=== PATIENT | male | born 1985 | race Caucasian/White ===

== ENCOUNTER 2016-12-31 16:58 | Emergency (ER) | payer MEDICAID | END 2016-12-31 19:30 | disposition left against medical advice (07) | LOC: D.ER 16:58 | DX: K08.89 Other specified disorders of teeth and supporting structures (principal) ==

== ENCOUNTER 2017-08-14 15:27 | Emergency (ER) | payer MEDICAID | END 2017-08-14 16:46 | disposition home or self-care (01) | LOC: D.ER 15:27 | DX: K04.7 Periapical abscess without sinus (principal); K08.89 Other specified disorders of teeth and supporting structures; F17.200 Nicotine dependence, unspecified, uncomplicated ==

== ENCOUNTER 2017-08-31 14:53 | Emergency (ER) | payer MEDICAID | END 2017-08-31 16:44 | disposition home or self-care (01) | LOC: D.ER 14:53 | DX: K04.7 Periapical abscess without sinus (principal); K08.89 Other specified disorders of teeth and supporting structures; K02.9 Dental caries, unspecified; F17.200 Nicotine dependence, unspecified, uncomplicated ==

== ENCOUNTER 2017-09-12 13:19 | Emergency (ER) | payer MEDICAID | END 2017-09-12 14:45 | disposition home or self-care (01) | LOC: D.ER 13:19 | DX: K04.7 Periapical abscess without sinus (principal); K02.9 Dental caries, unspecified; K08.89 Other specified disorders of teeth and supporting structures ==

== ENCOUNTER 2017-09-25 10:46 | Emergency (ER) | payer BC | END 2017-09-25 13:13 | disposition home or self-care (01) | LOC: D.ER 10:46 | DX: K02.9 Dental caries, unspecified (principal); K08.89 Other specified disorders of teeth and supporting structures ==

== ENCOUNTER 2017-10-16 08:22 | Emergency (ER) | payer MEDICAID | END 2017-10-16 10:45 | disposition home or self-care (01) | LOC: D.ER 08:22 | DX: K02.9 Dental caries, unspecified (principal); K08.89 Other specified disorders of teeth and supporting structures ==

== ENCOUNTER 2017-11-10 08:20 | Emergency (ER) | payer MEDICAID | END 2017-11-10 09:14 | disposition home or self-care (01) | LOC: D.ER 08:20 | DX: K02.9 Dental caries, unspecified (principal); F17.200 Nicotine dependence, unspecified, uncomplicated ==

== ENCOUNTER 2017-11-19 14:17 | Emergency (ER) | payer MEDICAID | END 2017-11-19 17:03 | disposition home or self-care (01) | LOC: D.ER 14:17 | DX: L25.9 Unspecified contact dermatitis, unspecified cause (principal); K04.7 Periapical abscess without sinus; K08.89 Other specified disorders of teeth and supporting structures; F17.200 Nicotine dependence, unspecified, uncomplicated ==

== ENCOUNTER 2017-12-18 10:42 | Emergency (ER) | payer MEDICAID | END 2017-12-18 12:28 | disposition home or self-care (01) | LOC: D.ER 10:42 | DX: K04.7 Periapical abscess without sinus (principal); K02.9 Dental caries, unspecified; L25.9 Unspecified contact dermatitis, unspecified cause; F17.200 Nicotine dependence, unspecified, uncomplicated ==

== ENCOUNTER 2018-01-01 14:02 | Emergency (ER) | payer MEDICAID | END 2018-01-01 18:22 | disposition home or self-care (01) | LOC: D.ER 14:02 | DX: K02.9 Dental caries, unspecified (principal); L85.3 Xerosis cutis ==

== ENCOUNTER 2018-01-21 08:48 | Emergency (ER) | payer MEDICAID | END 2018-01-21 11:48 | disposition home or self-care (01) | LOC: D.ER 08:48 | DX: F12.10 Cannabis abuse, uncomplicated (principal); F41.9 Anxiety disorder, unspecified; F17.200 Nicotine dependence, unspecified, uncomplicated ==

== ENCOUNTER 2018-02-16 08:21 | Emergency (ER) | payer MEDICAID | END 2018-02-16 09:00 | disposition home or self-care (01) | LOC: D.ER 08:21 | DX: K08.89 Other specified disorders of teeth and supporting structures (principal); K02.9 Dental caries, unspecified; F17.200 Nicotine dependence, unspecified, uncomplicated ==

== ENCOUNTER 2018-03-15 08:18 | Emergency (ER) | payer SELFPAY | END 2018-03-15 09:17 | disposition home or self-care (01) | LOC: D.ER 08:18 | DX: K02.9 Dental caries, unspecified (principal); K05.10 Chronic gingivitis, plaque induced; K08.89 Other specified disorders of teeth and supporting structures; F17.200 Nicotine dependence, unspecified, uncomplicated ==

== ENCOUNTER 2018-04-04 18:31 | Emergency (ER) | payer MEDICAID | END 2018-04-04 20:14 | disposition left against medical advice (07) | LOC: D.ER 18:31 | DX: K08.89 Other specified disorders of teeth and supporting structures (principal) ==

== ENCOUNTER 2018-04-06 09:00 | Emergency (ER) | payer MEDICAID | END 2018-04-06 09:43 | disposition home or self-care (01) | LOC: D.ER 09:00 | DX: R07.89 Other chest pain (principal); K08.89 Other specified disorders of teeth and supporting structures; W01.0XXA Fall on same level from slipping, tripping and stumbling without subsequent striking against object, initial encounter; Y93.89 Activity, other specified; Y92.017 Garden or yard in single-family (private) house as the place of occurrence of the external cause; F17.200 Nicotine dependence, unspecified, uncomplicated ==

== ENCOUNTER 2018-04-19 06:50 | Emergency (ER) | payer MEDICAID | END 2018-04-19 07:40 | disposition home or self-care (01) | LOC: D.ER 06:50 | DX: K02.9 Dental caries, unspecified (principal); K08.89 Other specified disorders of teeth and supporting structures ==

== ENCOUNTER 2018-05-14 00:14 | Emergency (ER) | payer MEDICAID ==
[~2018-05-14] VITALS: Ht 170.2 cm; Wt 68.2 kg
[2018-05-14 00:17] VITALS: Ht 170.2 cm; Wt 68.2 kg
[2018-05-14] MEDS ORDERED: VOLTAREN75 MG PO (11:48)
[2018-05-14] MEDS ORDERED: BIAXIN 500 MG500 MG PO (11:48)
== END 2018-05-14 01:50 | disposition left against medical advice (07) ==
LOC: D.ER 00:14
DX: K04.7 Periapical abscess without sinus (principal); K08.89 Other specified disorders of teeth and supporting structures

== ENCOUNTER 2018-05-14 11:06 | Emergency (ER) | payer MEDICAID ==
[~2018-05-14] VITALS: Ht 170.2 cm; Wt 72.7 kg
[2018-05-14 11:21] VITALS: BP 092/057; Ht 170.2 cm; Wt 72.7 kg
[2018-05-14] MEDS ORDERED: VOLTAREN75 MG PO (11:48)
[2018-05-14] MEDS ORDERED: BIAXIN 500 MG500 MG PO (11:48)
== END 2018-05-14 11:55 | disposition home or self-care (01) ==
LOC: D.ER 11:06
DX: K04.7 Periapical abscess without sinus (principal); K08.89 Other specified disorders of teeth and supporting structures

== ENCOUNTER 2018-06-10 19:11 | Emergency (ER) | payer MEDICAID ==
[~2018-06-10] VITALS: Ht 170.2 cm; Wt 68.0 kg
[~2018-06-10 19:11] MED LIST: BIAXIN 500 MG500 MG PO; VOLTAREN75 MG PO
[2018-06-10 19:15] VITALS: Ht 170.2 cm; Wt 68.0 kg
[2018-06-10] MEDS ORDERED: CYCLOBENZAPRINE10 MG PO (21:48)
[2018-06-10] MEDS ORDERED: AUGMENTIN 875-11 TAB PO (21:48)
[2018-06-10] MEDS ORDERED: ACETAMINOPHEN500 M1 PO (21:48)
[2018-06-10] MEDS ORDERED: IBUPROFEN800 MG PO (21:48)
[2018-06-11 01:12] VITALS: BP 121/77
== END 2018-06-11 01:13 | disposition home or self-care (01) ==
LOC: D.ER 19:11
DX: S91.342A Puncture wound with foreign body, left foot, initial encounter (principal); W45.0XXA Nail entering through skin, initial encounter; Y93.89 Activity, other specified; Y92.019 Unspecified place in single-family (private) house as the place of occurrence of the external cause; F17.200 Nicotine dependence, unspecified, uncomplicated

== ENCOUNTER 2018-10-04 01:41 | Emergency (ER) | payer SELFPAY ==
[~2018-10-04] VITALS: Ht 170.2 cm; Wt 68.2 kg
[~2018-10-04 01:41] MED LIST changes: +ACETAMINOPHEN500 M1 PO; +AUGMENTIN 875-11 TAB PO; +CYCLOBENZAPRINE10 MG PO; +IBUPROFEN800 MG PO
[2018-10-04 01:48] VITALS: Ht 170.2 cm; Wt 68.2 kg
[2018-10-04] MEDS ORDERED: CORTISPORIN OTI10 M1 RIGHT EAR (02:02)
[2018-10-04] MEDS ORDERED: AMOXICILLIN500 M1 PO (02:02)
[2018-10-04 02:21] VITALS: BP 130/77
== END 2018-10-04 02:29 | disposition home or self-care (01) ==
LOC: D.ER 01:41
DX: H60.11 Cellulitis of right external ear (principal); S09.91XA Unspecified injury of ear, initial encounter; X58.XXXA Exposure to other specified factors, initial encounter; Y93.89 Activity, other specified; Y92.019 Unspecified place in single-family (private) house as the place of occurrence of the external cause; K02.9 Dental caries, unspecified; F17.200 Nicotine dependence, unspecified, uncomplicated

== ENCOUNTER 2019-07-04 10:32 | Emergency (ER) | payer SELFPAY ==
[~2019-07-04] VITALS: Ht 170.2 cm; Wt 70.5 kg
[~2019-07-04 10:32] MED LIST changes: +AMOXICILLIN500 M1 PO; +CORTISPORIN OTI10 M1 RIGHT EAR
[2019-07-04 11:08] VITALS: BP 116/59; Ht 170.2 cm; Wt 70.5 kg
[2019-08-17 02:49] VITALS: Ht 170.2 cm; Wt 70.5 kg
== END 2019-07-04 11:50 | disposition left against medical advice (07) ==
LOC: D.ER 10:32
DX: R25.2 Cramp and spasm (principal)

== ENCOUNTER 2019-07-21 18:21 | Emergency (ER) | payer SELFPAY ==
[~2019-07-21] VITALS: Ht 170.2 cm; Wt 72.6 kg
[2019-07-21 18:44] VITALS: Ht 170.2 cm; Wt 72.6 kg
[2019-07-21 19:52] LABS: APPEARANCE SL CLDY (CLEAR); COLOR YELLOW (YELLOW); GLUCOSE NEGATIVE (NEGATIVE); KETONE NEGATIVE (NEGATIVE); NITRITE NEGATIVE (NEGATIVE); PROTEIN 1+ mg/dL (NEGATIVE); UROBILINOGEN NORMAL (NORMAL)
[2019-07-21 19:53] LABS: BILIRUBIN NEGATIVE (NEGATIVE)
[2019-07-21 19:54] LABS: RED CELLS - URINE >50 /hpf (0-5); WHITE CELLS - URINE 0-5 /hpf (0-5)
[2019-07-21 19:55] LABS: BACTERIA FEW /hpf (NONE SEEN); EPITHELIAL CELLS 0-5 /hpf (0-5)
[2019-07-21] MEDS ORDERED: LEVOFLOXACIN500 MG PO (21:23)
[2019-07-21] MEDS ORDERED: TORADOL10 MG PO (21:23)
[2019-07-21 21:41] VITALS: BP 118/68
[2019-07-28 13:10] LABS: CHLAMYDIA TRACHOMATIS, NAA Positive (Negative)
[2019-08-17 02:49] VITALS: Ht 170.2 cm; Wt 72.6 kg
== END 2019-07-21 21:42 | disposition home or self-care (01) ==
LOC: D.ER 18:21
PROVIDERS: Family Medicine
DX: N50.82 Scrotal pain (principal); N45.1 Epididymitis

== ENCOUNTER 2019-07-25 13:49 | Emergency (ER) | payer SELFPAY ==
[~2019-07-25] VITALS: Ht 170.2 cm; Wt 68.2 kg
[~2019-07-25 13:49] MED LIST changes: +LEVOFLOXACIN500 MG PO; +TORADOL10 MG PO
[2019-07-25 14:07] VITALS: Ht 170.2 cm; Wt 68.2 kg
[2019-07-25] MEDS ORDERED: ERYTHROMYCIN OPT1 GM EACH EYE (15:40)
[2019-07-25 16:05] VITALS: BP 120/68
[2019-08-17 02:49] VITALS: Ht 170.2 cm; Wt 68.2 kg
== END 2019-07-25 16:05 | disposition home or self-care (01) ==
LOC: D.ER 13:49
DX: S05.02XA Injury of conjunctiva and corneal abrasion without foreign body, left eye, initial encounter (principal); S05.01XA Injury of conjunctiva and corneal abrasion without foreign body, right eye, initial encounter; X58.XXXA Exposure to other specified factors, initial encounter; Y93.89 Activity, other specified; Y92.019 Unspecified place in single-family (private) house as the place of occurrence of the external cause

== ENCOUNTER 2019-08-16 15:09 | Inpatient (IN) | payer MEDICAID ==
[~2019-08-16] VITALS: Ht 180.3 cm; Wt 68.2 kg
[~2019-08-16 15:09] MED LIST changes: +ERYTHROMYCIN OPT1 GM EACH EYE
[2019-08-16 16:15] LABS: APPEARANCE CLEAR (CLEAR); BILIRUBIN NEGATIVE (NEGATIVE); COLOR YELLOW (YELLOW); GLUCOSE NEGATIVE (NEGATIVE); KETONE NEGATIVE (NEGATIVE); NITRITE NEGATIVE (NEGATIVE); PROTEIN NEGATIVE (NEGATIVE); UROBILINOGEN NORMAL (NORMAL)
[2019-08-16 16:16] LABS: BACTERIA FEW /hpf (NEGATIVE); RED CELLS - URINE 0-5 /hpf (0-5); SPERMATOZOA 0-5 /hpf (NONE SEEN); WHITE CELLS - URINE 25-50 /hpf (NEGATIVE)
[2019-08-16 16:21] LABS: BASOPHILS 0.1 % (0-2); EOSINOPHILS 0.2 % (0-7); HEMATOCRIT 41.4 % (42.0-54.0); HEMOGLOBIN 14.3 g/dL (13.5-17.5); IMMATURE GRANULOCYTES 0.2 % (0-5); LYMPHOCYTES 8.3 % (15-50); MCH 30.2 pg (26.0-34.0); MCHC 34.5 g/dL (31.0-37.0); MCV 87.3 fL (80.0-100.0); MEAN PLATELET VOLUME 10.5 fL (7.4-10.4); NEUTROPHILS 84.2 % (40-80); PLATELET COUNT 163 10x3/uL (130-400); RBC 4.74 10x6/uL (4.20-6.10); RDW 13.2 % (11.5-14.5); WBC 9.1 10x3/uL (4.8-10.8)
[2019-08-16 16:44] LABS: ALKALINE PHOSPHATASE 68 U/L (46-116); ALT (SGPT) 25 U/L (10-68); BILIRUBIN - TOTAL 0.47 mg/dL (0.2-1.3); CALC OSMOLALITY 264 mosm/kg (275-300); CALCIUM 7.6 mg/dL (8.5-10.1); CARBON DIOXIDE 28.1 mmol/L (21.0-32.0); CHLORIDE - SERUM 100 mmol/L (98-107); CREATININE - SERUM 0.9 mg/dL (0.6-1.3); GLUCOSE 99 mg/dL (74-106); PROTEIN - SERUM 6.5 g/dL (6.4-8.2); SODIUM 133 mmol/L (136-145); UREA NITROGEN 11 mg/dL (7-18); eGFR NON AFRICAN AMERICAN > 90 mL/min (90-120)
--- NOTE | 2019-08-16 22:31 | NUR ---
DC'D AZITHROMYCIN WHEN COMPLETED TRANSFUSION
--- NOTE | 2019-08-16 23:15 | NUR ---
RECEIVED PT FROM ER VIA W/C. SPEECH IS SLURRED. PT LETHARGIC AND DROWSY. DIFF STAYING AWAKE DURING ADMISSION ASSESSMENT QUESTION. B/P LOW AND REPORTED TO ANDREA HEREDIA. NS INFUSING IN RT AC WITHOUT DIFF. ORIENTED TO SELF, PLACE, SITUATION. CONFUSED. CL IN REACH. DENIES PAIN.
[2019-08-17] VITALS (7 sets, daily range): BP systolic 96–124; BP diastolic 39–65; Ht 180.3 cm; Wt 68.2 kg
--- NOTE | 2019-08-17 02:16 | NUR ---
CALLED BAIT PAINTER. NO TELEMETRY AVAILABLE AT THIS TIME.
--- NOTE | 2019-08-17 04:16 | NUR ---
HAS SLEPT SINCE ARRIVING TO UNIT. AWAKENS PER VERBAL AND TACTILE STIMULI BUT DROWSY. CL IN REACH. NO DISTRESS.
[2019-08-17 05:37] LABS: BASOPHILS 0.4 % (0-2); EOSINOPHILS 1.3 % (0-7); HEMATOCRIT 38.2 % (42.0-54.0); HEMOGLOBIN 12.7 g/dL (13.5-17.5); IMMATURE GRANULOCYTES 0.2 % (0-5); LYMPHOCYTES 16.6 % (15-50); MCH 29.5 pg (26.0-34.0); MCHC 33.2 g/dL (31.0-37.0); MCV 88.6 fL (80.0-100.0); MEAN PLATELET VOLUME 10.7 fL (7.4-10.4); NEUTROPHILS 69.5 % (40-80); PLATELET COUNT 138 10x3/uL (130-400); RBC 4.31 10x6/uL (4.20-6.10); RDW 13.7 % (11.5-14.5)
[2019-08-17 05:47] LABS: CALC OSMOLALITY 277 mosm/kg (275-300); CALCIUM 7.2 mg/dL (8.5-10.1); CARBON DIOXIDE 27.8 mmol/L (21.0-32.0); CHLORIDE - SERUM 105 mmol/L (98-107); CREATININE - SERUM 0.7 mg/dL (0.6-1.3); GLUCOSE 89 mg/dL (74-106); MAGNESIUM - SERUM 1.8 mg/dL (1.8-2.4); PHOSPHOROUS 3.9 mg/dL (2.5-4.9); POTASSIUM - SERUM 3.9 mmol/L (3.5-5.1); SODIUM 140 mmol/L (136-145); UREA NITROGEN 12 mg/dL (7-18); WBC 4.6 10x3/uL (4.8-10.8); eGFR NON AFRICAN AMERICAN > 90 mL/min (90-120)
--- NOTE | 2019-08-17 08:46 | NUR ---
AWAKE AND ALERT. ORIENTED X3. NO C/O AT THIS TIME. UP TO BR PER SELF. REPORTED LOOSE WATERY STOOL. WILL MONITOR. LUNGS ARE CLEAR BILATERALLY, NO COUGH NOTED. SKIN IS INTACT WITHOUT REDNESS. IV TO RIGHT FOREARM IS PATETN WTIHOUT REDNESS AT INSERTION SITE. SITTING UP ON SIDE OF BED EATING BREAKFAST. DENIES NEEDS.
--- NOTE | 2019-08-17 10:00 | NUR ---
ATE ANOTHER BREAKFAST. DENIES NEEDS. RESTING QUIETLY WITH EYES CLOSED. MOTHER AT BEDSIDE.
--- NOTE | 2019-08-17 12:30 | NUR ---
ATE A DOUBLE LUNCH TODAY. DENIES NEEDS. NO CHANGES NOTED.
--- NOTE | 2019-08-17 15:00 | NUR ---
RESTING QUIETLY IN BED WITH EYES CLOSED.
[2019-08-17 15:46] LABS: UDS - AMPHET POSITIVE QUAL (NEGATIVE); UDS - BARB NEGATIVE QUAL (NEGATIVE); UDS - BENZO NEGATIVE QUAL (NEGATIVE); UDS - COCAINE NEGATIVE QUAL (NEGATIVE); UDS - OPIATE POSITIVE QUAL (NEGATIVE); UDS - PCP NEGATIVE QUAL (NEGATIVE); UDS - THC POSITIVE QUAL (NEGATIVE)
--- NOTE | 2019-08-17 18:10 | NUR ---
ATE 2 SUPPERS TONIGHT. REQUESTED AND GIVEN 650 MG TYLENOL PO FOR C/O HEADACHE. WILL MONITOR. DENIES NEEDS. NO CHANGES NOTED.
--- NOTE | 2019-08-17 19:40 | NUR ---
LYING IN BED ALONG WITH 2 CHILDREN. ALERT AND ORIENTED. TALKATIVE. STATES HE HAD SOME DIARRHEA TODAY BUT HIS CHILDREN HAD PREVIOUSLY BEEN ILL WELL WITH THIS. RATES PAIN IN HIS BACK 4 ON PAIN SCALE. RESP EVEN AND NONLABORED. NS @ 50 ML/HR INFUSING IN RT AC WITHOUT DIFF. AMBULATORY. NO DISTRESS. DENIES NEEDS. SR ELEVATED X2. CL IN REACH.
[2019-08-18] VITALS: BP 102/60
[2019-08-18 04:00] VITALS: BP 99/53
[2019-08-18 06:30] LABS: BASOPHILS 0.3 % (0-2); EOSINOPHILS 7.7 % (0-7); HEMATOCRIT 38.3 % (42.0-54.0); HEMOGLOBIN 12.3 g/dL (13.5-17.5); LYMPHOCYTES 24.1 % (15-50); MCH 29.9 pg (26.0-34.0); MCHC 32.1 g/dL (31.0-37.0); MEAN PLATELET VOLUME 11.1 fL (7.4-10.4); MONOCYTES 13.8 % (2-11); NEUTROPHILS 54.1 % (40-80); PLATELET COUNT 150 10x3/uL (130-400); RBC 4.12 10x6/uL (4.20-6.10); RDW 13.9 % (11.5-14.5)
[2019-08-18 06:31] LABS: WBC 3.1 10x3/uL (4.8-10.8)
[2019-08-18 06:47] LABS: CALC OSMOLALITY 285 mosm/kg (275-300); CALCIUM 7.5 mg/dL (8.5-10.1); CARBON DIOXIDE 27.3 mmol/L (21.0-32.0); CHLORIDE - SERUM 110 mmol/L (98-107); CREATININE - SERUM 0.6 mg/dL (0.6-1.3); GLUCOSE 98 mg/dL (74-106); MAGNESIUM - SERUM 1.9 mg/dL (1.8-2.4); PHOSPHOROUS 3.4 mg/dL (2.5-4.9); POTASSIUM - SERUM 4.3 mmol/L (3.5-5.1); SODIUM 143 mmol/L (136-145); UREA NITROGEN 15 mg/dL (7-18); eGFR NON AFRICAN AMERICAN > 90 mL/min (90-120)
--- NOTE | 2019-08-18 07:00 | NUR ---
PATIENT RECIEVED FROM PREVIOUS NURSE RESTING IN BED WITH NO NEEDS VOICED. CL IN REACH
[2019-08-18 08:47] VITALS: BP 106/64
[2019-08-18] MEDS ORDERED: LEVAQUIN750 MG PO (17:34)
[2019-08-18] MEDS ORDERED: FLAGYL500 MG PO (17:34)
[2019-08-18 18:11] VITALS: BP 98/38
--- NOTE | 2019-08-18 18:50 | NUR ---
IV REMOVED WITH NO REDNESS OR EDEMA. DISCHARGE INSTRUCTIONS GIVEN WITH PATIENT VOICING UNDERSTANDING. PATIENT AMBULATED TO PRIVATE CAR WITH DAUGHTER
== END 2019-08-18 18:51 | disposition home or self-care (01) | DRG 392 ==
LOC: D.ER → D.MS 21:24
PROVIDERS: Family Medicine; ADMIT Internal Medicine Nephrology; ATTEND Internal Medicine Nephrology
DX: K52.9 Noninfective gastroenteritis and colitis, unspecified (principal); E87.1 Hypo-osmolality and hyponatremia; N39.0 Urinary tract infection, site not specified; F12.929 Cannabis use, unspecified with intoxication, unspecified; F15.10 Other stimulant abuse, uncomplicated; Z72.0 Tobacco use; K59.00 Constipation, unspecified

== ENCOUNTER 2019-11-15 10:15 | Emergency (ER) | payer MEDICAID ==
[~2019-11-15] VITALS: Ht 170.2 cm; Wt 68.2 kg
[~2019-11-15 10:15] MED LIST changes: +FLAGYL500 MG PO; +LEVAQUIN750 MG PO
[2019-11-15 10:18] VITALS: Ht 170.2 cm; Wt 68.2 kg
[2019-11-15] MEDS ORDERED: CLEOCIN HCL300 MG PO (10:53)
[2019-11-15] MEDS ORDERED: VOLTAREN75 MG PO (10:53)
[2019-11-15 11:22] VITALS: BP 147/83
== END 2019-11-15 11:23 | disposition home or self-care (01) ==
LOC: D.ER 10:15
DX: K04.7 Periapical abscess without sinus (principal); K08.89 Other specified disorders of teeth and supporting structures; Z72.0 Tobacco use

== ENCOUNTER 2020-04-29 03:53 | Emergency (ER) | payer SELFPAY ==
[~2020-04-29] VITALS: Ht 170.2 cm; Wt 68.2 kg
[~2020-04-29 03:53] MED LIST changes: +CLEOCIN HCL300 MG PO
[2020-04-29 03:58] VITALS: BP 148/94; Ht 170.2 cm; Wt 68.2 kg
[2020-04-29] MEDS ORDERED: FLAGYL500 MG PO (04:07)
[2020-04-29 04:46] LABS: BILIRUBIN NEGATIVE (NEGATIVE); GLUCOSE NEGATIVE (NEGATIVE); KETONE NEGATIVE (NEGATIVE); NITRITE NEGATIVE (NEGATIVE); UROBILINOGEN NORMAL (NORMAL)
[2020-04-29 04:48] LABS: BACTERIA FEW /hpf (NEGATIVE); EPITHELIAL CELLS 0-5 /hpf (0-5); RED CELLS - URINE 0-5 /hpf (0-5)
[2020-04-30] MEDS ORDERED: DICLOFENAC SODI50 MG PO (00:20)
[2020-04-30] MEDS ORDERED: CYCLOBENZAPRINE10 MG PO (22:26)
== END 2020-04-29 04:10 | disposition home or self-care (01) ==
LOC: D.ER 03:53
PROVIDERS: Family Medicine
DX: N34.2 Other urethritis (principal); N48.89 Other specified disorders of penis; R30.0 Dysuria

== ENCOUNTER 2020-04-30 00:04 | Emergency (ER) | payer SELFPAY ==
[~2020-04-30] VITALS: Ht 170.2 cm; Wt 68.2 kg
[2020-04-30 00:14] VITALS: BP 151/65; Ht 170.2 cm; Wt 68.2 kg
[2020-04-30] MEDS ORDERED: DICLOFENAC SODI50 MG PO (00:20)
[2020-04-30] MEDS ORDERED: CYCLOBENZAPRINE10 MG PO (22:26)
== END 2020-04-30 00:26 | disposition home or self-care (01) ==
LOC: D.ER 00:04
DX: M72.2 Plantar fascial fibromatosis (principal); S46.212A Strain of muscle, fascia and tendon of other parts of biceps, left arm, initial encounter; X58.XXXA Exposure to other specified factors, initial encounter

== ENCOUNTER 2020-04-30 22:04 | Emergency (ER) | payer SELFPAY ==
[~2020-04-30] VITALS: Ht 170.2 cm; Wt 68.2 kg
[~2020-04-30 22:04] MED LIST changes: +DICLOFENAC SODI50 MG PO
[2020-04-30 22:09] VITALS: Ht 170.2 cm; Wt 68.2 kg
[2020-04-30] MEDS ORDERED: CYCLOBENZAPRINE10 MG PO (22:26)
[2020-04-30 22:44] VITALS: BP 141/82
== END 2020-04-30 22:47 | disposition home or self-care (01) ==
LOC: D.ER 22:04
DX: S46.912A Strain of unspecified muscle, fascia and tendon at shoulder and upper arm level, left arm, initial encounter (principal); M25.512 Pain in left shoulder; X50.0XXA Overexertion from strenuous movement or load, initial encounter; Y93.9 Activity, unspecified; Y92.9 Unspecified place or not applicable

== ENCOUNTER 2020-05-02 17:41 | Emergency (ER) | payer SELFPAY ==
[~2020-05-02] VITALS: Ht 170.2 cm; Wt 68.2 kg
[2020-05-02 17:45] VITALS: BP 115/80; Ht 170.2 cm; Wt 68.2 kg
== END 2020-05-02 18:31 | disposition left against medical advice (07) ==
LOC: D.ER 17:41
DX: M25.512 Pain in left shoulder (principal)